=== PATIENT | female | born 1950 | race Native Hawaiian/Other Pacific Islander ===

== ENCOUNTER 2019-05-21 09:50 | Outpatient (CLI) | payer OTHER ==
[~2019-05-21 09:50] MED LIST: CHLOSUS43 PO; DIOVAN HC1 PO; JANUMET1 TAB OR; LEVAQUIN500 MG OR; MEDROL DOSEPAK4 MG OR
[2019-05-21 10:21] LABS: PLATELET COUNT 390 K/uL (152-353)
[2019-05-21 10:39] LABS: POTASSIUM 4.1 mmol/L (3.6-5.2)
== END 2019-05-21 20:34 | disposition home or self-care (01) ==
LOC: LABW 09:50
PROVIDERS: Internal Medicine
DX: N18.4 Chronic kidney disease, stage 4 (severe) (principal)
CPT/HCPCS: 36415; 80053; 81000; 82306; 82330; 82570; 83735; 83970; 84100; 84155; 85027

== ENCOUNTER 2019-05-22 08:43 | Outpatient (CLI) | payer OTHER | END 2019-05-22 21:36 | disposition home or self-care (01) | LOC: US 08:43 | DX: N18.4 Chronic kidney disease, stage 4 (severe) (principal) ==

== ENCOUNTER 2019-06-19 08:00 | Emergency (ER) | payer OTHER ==
[~2019-06-19] VITALS: Ht 157.5 cm; Wt 73.5 kg
[2019-06-19 08:06] VITALS: TEMP 97.7
[2019-06-19 08:54] LABS: PLATELET COUNT 464 K/uL (152-353)
[2019-06-19 09:06] LABS: POTASSIUM 4.1 mmol/L (3.6-5.2); SODIUM 139 mmol/L (136-145)
[2019-06-19 10:17] VITALS: BP 150/88
== END 2019-06-19 10:18 | disposition home or self-care (01) ==
LOC: ED 08:00
PROVIDERS: Emergency Medicine
DX: E86.0 Dehydration (principal); T50.991A Poisoning by other drugs, medicaments and biological substances, accidental (unintentional), initial encounter; Y92.89 Other specified places as the place of occurrence of the external cause
CPT/HCPCS: 80053; 81000; 82550; 83735; 84484; 84550; 85027; 93005; 96360; 96375; 99284; J2405

== ENCOUNTER 2019-09-17 09:14 | Outpatient (CLI) | payer OTHER ==
[2019-09-17 09:36] LABS: PLATELET COUNT 375 K/uL (152-353)
[2019-09-17 09:47] LABS: POTASSIUM 4.1 mmol/L (3.6-5.2)
== END 2019-09-17 19:31 | disposition home or self-care (01) ==
LOC: LABW 09:14
PROVIDERS: Internal Medicine
DX: E11.22 Type 2 diabetes mellitus with diabetic chronic kidney disease (principal); N18.4 Chronic kidney disease, stage 4 (severe)
CPT/HCPCS: 36415; 80053; 81000; 82306; 82330; 82570; 83036; 83735; 83970; 84100; 84155; 85027

== ENCOUNTER 2019-12-17 11:52 | Outpatient (CLI) | payer OTHER ==
[2019-12-17 12:44] LABS: PLATELET COUNT 390 K/uL (152-353)
[2019-12-17 12:50] LABS: POTASSIUM 4.3 mmol/L (3.6-5.2)
== END 2019-12-17 19:11 | disposition home or self-care (01) ==
LOC: LABW 11:52
PROVIDERS: Nurse Practitioner
DX: E11.22 Type 2 diabetes mellitus with diabetic chronic kidney disease (principal); N18.4 Chronic kidney disease, stage 4 (severe)
CPT/HCPCS: 36415; 80053; 81000; 82306; 82330; 83036; 83735; 83970; 84100; 85027

== ENCOUNTER 2020-01-13 11:56 | Outpatient (CLI) | payer OTHER ==
[2020-01-13 12:29] LABS: POTASSIUM 4.5 mmol/L (3.6-5.2)
[2020-01-13 13:07] LABS: PLATELET COUNT 401 K/uL (152-353)
== END 2020-01-13 21:14 | disposition home or self-care (01) ==
LOC: LABW 11:56
PROVIDERS: Nurse Practitioner Family
DX: Z01.818 Encounter for other preprocedural examination (principal); I10 Essential (primary) hypertension; E78.49 Other hyperlipidemia; K21.9 Gastro-esophageal reflux disease without esophagitis
CPT/HCPCS: 36415; 80053; 81000; 85027; 93005

== ENCOUNTER 2020-06-24 13:40 | Outpatient (CLI) | payer OTHER ==
[2020-06-24 14:05] LABS: PLATELET COUNT 343 K/uL (152-353)
== END 2020-06-24 21:09 | disposition home or self-care (01) ==
LOC: LABW 13:40
PROVIDERS: ATTEND Internal Medicine
DX: E11.22 Type 2 diabetes mellitus with diabetic chronic kidney disease (principal); N18.4 Chronic kidney disease, stage 4 (severe)
CPT/HCPCS: 36415; 80053; 81000; 82306; 82330; 82570; 83036; 83735; 83970; 84100; 84155; 85027

== ENCOUNTER 2020-08-05 09:24 | Outpatient (CLI) | payer OTHER | END 2020-08-05 19:24 | disposition home or self-care (01) | LOC: INF 09:24 | PROVIDERS: ATTEND Internal Medicine | DX: Z23 Encounter for immunization (principal) | CPT/HCPCS: 96372 ==

== ENCOUNTER 2020-08-07 12:57 | Outpatient (CLI) | payer OTHER | END 2020-08-07 19:58 | disposition home or self-care (01) | LOC: RAD 12:57 | PROVIDERS: ATTEND Family Medicine | DX: Z00.00 Encounter for general adult medical examination without abnormal findings (principal); E11.9 Type 2 diabetes mellitus without complications; K21.9 Gastro-esophageal reflux disease without esophagitis; E78.49 Other hyperlipidemia; N18.4 Chronic kidney disease, stage 4 (severe); I12.9 Hypertensive chronic kidney disease with stage 1 through stage 4 chronic kidney disease, or unspecified chronic kidney disease; N95.8 Other specified menopausal and perimenopausal disorders ==

== ENCOUNTER 2020-09-02 08:21 | Outpatient (CLI) | payer OTHER | END 2020-09-02 21:37 | disposition home or self-care (01) | LOC: INF 08:21 | PROVIDERS: ATTEND Internal Medicine | DX: Z23 Encounter for immunization (principal) | CPT/HCPCS: 96372 ==

== ENCOUNTER 2020-10-19 10:35 | Outpatient (CLI) | payer OTHER ==
[2020-10-19 11:21] LABS: PLATELET COUNT 381 K/uL (152-353); POTASSIUM 4.5 mmol/L (3.6-5.2)
== END 2020-10-19 19:21 | disposition home or self-care (01) ==
LOC: LABW 10:35
PROVIDERS: ATTEND Internal Medicine
DX: E11.22 Type 2 diabetes mellitus with diabetic chronic kidney disease (principal); N18.4 Chronic kidney disease, stage 4 (severe)
CPT/HCPCS: 36415; 80053; 81000; 82306; 82330; 82570; 83036; 83735; 83970; 84100; 84155; 85027

== ENCOUNTER 2021-01-29 11:41 | Outpatient (CLI) | payer OTHER ==
[2021-01-29 12:52] LABS: PLATELET COUNT 343 K/uL (152-353)
[2021-01-29 13:16] LABS: POTASSIUM 5.1 mmol/L (3.6-5.2)
== END 2021-01-29 22:52 | disposition home or self-care (01) ==
LOC: LABW 11:41
PROVIDERS: ATTEND Nurse Practitioner Family
DX: R10.9 Unspecified abdominal pain (principal)
CPT/HCPCS: 36415; 80053; 81000; 82150; 83690; 85027; Q9963

== ENCOUNTER 2021-02-26 15:05 | Outpatient (CLI) | payer OTHER ==
[2021-02-26 15:23] LABS: PLATELET COUNT 345 K/uL (152-353)
[2021-02-26 15:31] LABS: POTASSIUM 4.2 mmol/L (3.6-5.2)
== END 2021-02-26 23:14 | disposition home or self-care (01) ==
LOC: LABW 15:05
PROVIDERS: ATTEND Internal Medicine
DX: E11.22 Type 2 diabetes mellitus with diabetic chronic kidney disease (principal); N18.4 Chronic kidney disease, stage 4 (severe)
CPT/HCPCS: 36415; 80053; 81000; 82306; 82330; 82570; 83036; 83735; 83970; 84100; 84155; 85027

== ENCOUNTER 2021-06-23 08:54 | Outpatient (CLI) | payer OTHER ==
[2021-06-23 09:50] LABS: PLATELET COUNT 383 K/uL (152-353)
[2021-06-23 09:51] LABS: POTASSIUM 4.6 mmol/L (3.6-5.2)
== END 2021-06-23 20:19 | disposition home or self-care (01) ==
LOC: LABW 08:54
PROVIDERS: ATTEND Nurse Practitioner
DX: E11.22 Type 2 diabetes mellitus with diabetic chronic kidney disease (principal); N18.4 Chronic kidney disease, stage 4 (severe); M10.9 Gout, unspecified
CPT/HCPCS: 36415; 80053; 81000; 82306; 82330; 82570; 83036; 83735; 83970; 84100; 84155; 84550; 85027

== ENCOUNTER 2021-10-01 11:06 | Outpatient (CLI) | payer OTHER ==
[2021-10-01 11:31] LABS: PLATELET COUNT 337 K/uL (152-353)
[2021-10-01 11:55] LABS: POTASSIUM 3.9 mmol/L (3.6-5.2)
== END 2021-10-01 19:36 | disposition home or self-care (01) ==
LOC: LABW 11:06
PROVIDERS: ATTEND Internal Medicine
DX: I12.9 Hypertensive chronic kidney disease with stage 1 through stage 4 chronic kidney disease, or unspecified chronic kidney disease (principal); N18.4 Chronic kidney disease, stage 4 (severe); E11.22 Type 2 diabetes mellitus with diabetic chronic kidney disease; M10.9 Gout, unspecified; E78.49 Other hyperlipidemia; D64.89 Other specified anemias; K21.9 Gastro-esophageal reflux disease without esophagitis; E66.9 Obesity, unspecified
CPT/HCPCS: 36415; 80053; 80061; 81000; 82306; 82330; 82570; 83036; 83735; 83970; 84100; 84155; 84439; 84443; 84550; 85027

== ENCOUNTER 2021-12-28 11:40 | Outpatient (CLI) | payer OTHER ==
[2021-12-28 12:04] LABS: PLATELET COUNT 363 K/uL (152-353)
== END 2021-12-28 18:59 | disposition home or self-care (01) ==
LOC: LABW 11:40
PROVIDERS: ATTEND Nurse Practitioner
DX: E11.65 Type 2 diabetes mellitus with hyperglycemia (principal); E78.49 Other hyperlipidemia; D64.89 Other specified anemias; K21.9 Gastro-esophageal reflux disease without esophagitis; I10 Essential (primary) hypertension; E66.9 Obesity, unspecified
CPT/HCPCS: 36415; 80053; 80061; 82043; 82306; 82570; 83036; 83525; 84439; 84443; 84681; 85027

== ENCOUNTER 2023-01-15 13:58 | Observation (INO) | payer OTHER ==
[~2023-01-15] VITALS: Ht 157.5 cm; Wt 60.1 kg
[2023-01-15 14:05] VITALS: BP 152/76; TEMP 97.2
[2023-01-15 14:28] LABS: PLATELET COUNT 288 K/uL (152-353)
[2023-01-15 14:34] LABS: POTASSIUM 4.2 mmol/L (3.6-5.2)
[2023-01-15 16:03] VITALS: BP 135/71; TEMP 97.9; Ht 157.5 cm; Wt 60.1 kg
[2023-01-15] MEDS ORDERED: ALLO100T22 PO (17:47)
[2023-01-15] MEDS ORDERED: LIPITOR20 MG PO (17:47)
[2023-01-15] MEDS ORDERED: GABA300C2 PO (17:48)
[2023-01-15] MEDS ORDERED: MONT10TA PO (17:48)
[2023-01-15] MEDS ORDERED: ONDA4TAB3 PO (17:49)
[2023-01-15] MEDS ORDERED: TIRZEPATIDE SC (17:51)
[2023-01-15] MEDS ORDERED: OMEP40CA PO (17:52)
[2023-01-15 18:09] VITALS: BP 138/71; TEMP 98.9
[2023-01-15 20:03] VITALS: BP 96/65; TEMP 98.1
[2023-01-16] VITALS: BP 100/58; TEMP 97.5
[2023-01-16 06:00] VITALS: BP 103/56; TEMP 97.8
[2023-01-16 08:00] VITALS: BP 112/68; TEMP 98.6
[2023-01-16 12:00] VITALS: BP 159/60; TEMP 98.1
== END 2023-01-16 14:50 | disposition home or self-care (01) ==
LOC: ED 13:58 → MED/SURG 14:56
PROVIDERS: Family Medicine; ADMIT Internal Medicine; ATTEND Internal Medicine
DX: R07.89 Other chest pain (principal); E11.9 Type 2 diabetes mellitus without complications; M10.9 Gout, unspecified; E78.49 Other hyperlipidemia; G62.89 Other specified polyneuropathies; K21.9 Gastro-esophageal reflux disease without esophagitis
CPT/HCPCS: 36415; 80053; 82550; 82948; 84484; 85027; 93005; 99221; 99284; G0378